=== PATIENT | male | born 1995 | race Caucasian/White ===

== ENCOUNTER 2018-04-02 04:17 | Emergency (ER) | payer MEDICAID ==
[~2018-04-02] VITALS: Ht 180.3 cm; Wt 68.0 kg
[2018-04-02 04:23] VITALS: BP 157/61
[2018-04-02] MEDS ORDERED: NKM (04:23)
--- NOTE | 2018-04-02 05:29 | Emergency Room Report ---
History of Present Illness General Chief Complaint: Substance Abuse Source: Patient, Friend, Significant Other Present Illness HPI Is a 23-year-old male brought in by his boyfriend with chief complaint of drug overdose. There were using GHB. He's been getting more sleepy. Denies any other drug use. Denies any alcohol. He was able to give the nursing staff some information when he got here. Now he sleeping and not able to give me any history. Allergies: Coded Allergies: No Known Allergies (Unverified , 04/02/18) Patient History Past Medical History: see triage record, old chart reviewed Past Surgical History: other Pertinent Family History: none Social History: Reports: drug use; Denies: smoking Immunizations: other Reviewed Nursing Documentation: PMH: Agreed; PSxH: Agreed Nursing Documentation-PMH Past Medical History: No Stated History Review of Systems Eye: Denies: eye pain, blurred vision ENT: Denies: ear pain, nose congestion, throat swelling Respiratory: Denies: cough, shortness of breath Cardiovascular: Denies: chest pain, palpitations Gastrointestinal: Denies: abdominal pain, diarrhea, nausea, vomiting Musculoskeletal: Denies: back pain, joint pain Skin: Denies: rash Neurological: Denies: headache, numbness Endocrine: Denies: increased thirst, increased urine Hematologic/Lymphatic: Denies: easy bruising All Other Systems: limited - secondary to intoxication Physical Exam Vital Signs Date Time Temp Pulse Resp B/P (MAP) Pulse Ox O2 Delivery O2 Flow Rate FiO2 04/02/18 04:23 97.7 77 16 157/61 96 97.7 04/02/18 04:23 Room Air vitals with high blood pressure Sp02 EP Interpretation: reviewed, normal General Appearance: well appearing, no apparent distress, other - sleepy Head: normocephalic, atraumatic Eyes: bilateral eye PERRL, bilateral eye EOMI ENT: hearing grossly normal, normal pharynx Neck: full range of motion, supple, no meningismus Respiratory: chest non-tender, lungs clear, normal breath sounds Cardiovascular #1: regular rate, rhythm, no murmur Gastrointestinal: normal bowel sounds, non tender, no mass, no organomegaly, no bruit, non-distended Musculoskeletal: back normal, normal range of motion Neurologic: grossly normal Psychiatric: mood/affect normal Skin: warm/dry Medical Decision Making Diagnostic Impression: Primary Impression: Gammahydroxy butarate (GHB) use disorder, mild, abuse ER Course Patient with GHB abuse and overdose. He is sleepy but protecting his airway. He is moving all extremities. He responds to painful stimuli. We'll observe until clinical sobriety. No need for airway protection or blood work. Last Vital Signs Date Time Temp Pulse Resp B/P (MAP) Pulse Ox O2 Delivery O2 Flow Rate FiO2 04/02/18 04:23 97.7 19 157/61 100 Room Air 97.7 04/02/18 04:23 77 Status: improved Disposition: HOME, SELF-CARE Condition: Stable Referrals: NOT CHOSEN IPA/MD,REFERRING (PCP) Additional Instructions: Abstain from drugs and alcohol. Follow-up with your doctor in 7 days. Return if worse. OSCAR ZARATE M.D. Apr 02, 2018 05:29
[2018-04-02 06:41] VITALS: BP 117/59
[2018-04-02 06:42] VITALS: BP 117/59
== END 2018-04-02 06:46 | disposition home or self-care (01) ==
LOC: EMR 04:52
DX: F19.10 Other psychoactive substance abuse, uncomplicated (principal)
CPT/HCPCS: 99282